=== PATIENT | male | born 1950 | race Caucasian/White ===

== ENCOUNTER 2019-06-13 14:15 | Emergency (ER) | payer BC, MEDICARE ==
--- OUTSIDE RECORDS SUMMARY | 2019-06-13 14:27 | XMS REPORT | Continuity of Care Document ---
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 Problems Provider Date Allergic rhinitis due to pollen Good De Dios MD Onset: 09/22/2016 Allergic rhinitis Good De Dios MD Onset: 09/22/2016 Uncomplicated moderate persistent asthma Good De Dios MD Onset: Social History Type Date Description Comments Sex Unknown Tobacco Use Start: Unknown End: Patient is a former smoker Smoking Status Reviewed: 04/24/19 Patient is a former smoker Allergies, Adverse Reactions, Alerts Description No Known Drug Allergies Medications Active Medications SIG Qnty Indications Ordering Provider Date Levocetirizine Take 1 Tablet 90tabs J30.1 Good Sanchez 05/30/2018 Dihydrochloride By Mouth Once MD [facility] 5mg Daily AT Tablets Bedtime Qnasl Use 2 [place](S) 11units Good Sanchez 09/22/2016 80mcg/Act Aerosol In Each MD [facility] Nostril Once Daily Simvastatin Unknown 40mg Tablets Tamsulosin HCL Unknown 0.4mg Capsules Esomeprazole Magnesium Unknown Ibuprofen Unknown Fiber Unknown Immunizations Description No Information Available Vital Signs Date Vital Result Comment 04/24/2019 10:26am BP Systolic 142 mmHg BP Diastolic 94 mmHg Height 70 inches 5'10" Weight 206.00 lb BMI (Body Mass Index) 29.6 kg/m2 Heart Rate 73 /min Respiratory Rate 16 /min Body Temperature 97.6 F O2 % BldC Oximetry 93 % 05/19/2018 10:00am BP Systolic 124 mmHg BP Diastolic 60 mmHg Height 70 inches 5'10" Weight 205.00 lb BMI (Body Mass Index) 29.4 kg/m2 Heart Rate 61 /min Respiratory Rate 20 /min O2 % BldC Oximetry 95 % Results Test Acquired Date Facility Test Result H/L Range Note Order 04/24/2019 [facility] PFT Supplies <pending> PFT With Bronchodilator <pending> Procedures Date Code Description Status 04/24/2019 36102 Bronchodilation Responsiveness Spirometry Pre/Post Completed Bronchodil Adm Medical Devices Description No Information Available Encounters Type Date Location Provider Dx Diagnosis Office Visit 04/24/2019 [place] Good De Dios J30.89 Other allergic 10:30a MD rhinitis J30.1 Allergic rhinitis due to pollen J45.40 Moderate persistent asthma, uncomplicated Assessments Date Code Description Provider 04/24/2019 J30.89 Other allergic rhinitis Good De Dios MD 04/24/2019 J30.1 Allergic rhinitis due to pollen Good De Dios MD 04/24/2019 J45.40 Moderate persistent asthma, uncomplicated Good De Dios MD Plan of Treatment Future Appointment(s):10/25/2019 8:30 am - [facility]/21/2020 - Good De Dios MDJ30.89 Other allergic [id number] Allergic rhinitis due to [id number] Moderate persistent asthma, uncomplicated Functional Status Description No Information Available Mental Status Description No Information Available Referrals Description No Information Available
[2019-06-13 15:40] LABS: ABS Basophils 0.1 10^3/ul (0-0.2); ABS Eosinophils 0.1 10^3/ul (0-0.6); ABS Lymphocytes 1.9 10^3/ul (1.0-4.8); ABS Neutrophils 7.8 10^3/ul (1.5-7.7); Eosinophil % 1.4 %; Hematocrit 42 % (42-52); Hemoglobin 14.7 g/dL (14.0-18.0); Lymphocyte % 17.1 %; Mean Corpuscular HGB Conc 35 g/dL (31-36); Mean Corpuscular Hemoglobin 32 pg (27-31); Mean Corpuscular Volume 92 fL (80-94); Mean Platelet Volume 9.1 fL (7.4-10.4); Platelet Count 191 10^3/uL (150-450); Red Cell Distribution Width 14 % (10-15); White Blood Count 10.9 10^3/uL (3.5-10.8)
[2019-06-13 16:46] LABS: Albumin 4.4 g/dL (3.2-5.2); Calcium 9.7 mg/dL (8.6-10.3); Potassium 4.1 mmol/L (3.5-5.0); Total Bilirubin 0.6 mg/dL (0.2-1.0)
[2019-06-13 16:52] LABS: Albumin/Globulin Ratio 1.8 (1-3); BUN/Creatinine Ratio 17.2 (8-20); C Reactive Protein 54.43 mg/L (<8.01); EGFR African American 67.8 (>60); EGFR Non-African American 56.1 (>60); Globulin 2.5 g/dL (2-4); Total Protein 6.9 g/dL (6.4-8.9)
[2019-06-13] MEDS ORDERED: NS 0.9% 1000 ML** 1,000 ML IV ONE (18:54)
--- NOTE | 2019-06-13 18:54 | ED ---
Abdominal Pain/Male - HPI Summary HPI Summary: Patient complains of bilateral lower abdominal pain 3 days. Pain described as intermittent, worse 10/11, currently 2/10. No history of similar symptoms with prior episode of diverticulitis. Also states no BM for 3 days, however took a laxative last night and has had 3 BMs today. Denies fever, cough, sore throat, CP, SOB, N/V/D, change in urine, penile or testicular symptoms. Medical history is BPH. Abdominal surgical history is appendectomy, hernia 2. - History of Current Complaint Chief Complaint: EDAbdPain Stated Complaint: ABD CRAMPS PER PT Time Seen by Provider: 06/13/19 18:52 Hx Obtained From: Patient Onset/Duration: Gradual Onset, Lasting Days Timing: Intermittent, Lasting Hours Severity Initially: Moderate Severity Currently: Mild Pain Intensity: 2 Pain Scale Used: 0-10 Numeric Location: Discrete At: RLQ, Discrete At: LLQ, Suprapubic Radiates: No Character: Dull, Cramping Aggravating Factor(s): Nothing Alleviating Factor(s): Spontaneous Resolution Associated Signs And Symptoms: Positive: Negative - Allergies/Home Medications Allergies/Adverse Reactions: Allergies Allergy/AdvReac Type Severity Reaction Status Date / Time No Known Allergies Allergy Verified 01/27/18 16:29 Home Medications: Home Medications Esomeprazole(NF) [Nexium(NF)] 40 mg PO QPM 09/25/12 [History Confirmed 06/13/19] Simvastatin TAB(NF) [Zocor 20 MG (NF)] 40 mg PO QPM 09/25/12 [History Confirmed 06/13/19] Tamsulosin CAP* [Flomax CAP*] 0.4 mg PO QPM 09/25/12 [History Confirmed 06/13/19 ] Fluticasone NASAL SPRAY 50MCG* [Flonase NASAL SPRAY 50MCG*] 2 spray BOTH NARES DAILY 01/27/18 [History Confirmed 06/13/19] LevoCETirizine TAB (NF) [Xyzal TAB (NF)] 5 mg PO DAILY 01/27/18 [History Confirmed 06/13/19] Polymyx/Trimethoprim OPTH* [Polytrim OPHTH*] 2 drop LEFT EYE Q6HR #1 btl [Rx Confirmed 06/13/19] Amoxicillin/Clavulanate TAB* [Augmentin TAB 875*] 875 mg PO BID 14 Days #28 tab 06/13/19 [Rx] PMH/Surg Hx/FS Hx/Imm Hx Endocrine/Hematology History: Reports: Hx 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 Cardiovascular History: Denies: Hx Pacemaker/ICD Respiratory History: Reports: Other Respiratory Problems/Disorders - PNEUMONIA ABOUT 1 1/2 YRS AGO GI History: Reports: Hx Gastroesophageal Reflux Disease - ON MEDS, Other GI Disorders - HX DIVERTICULITIS History: Reports: Other Problems/Disorders - BPH Musculoskeletal History: Reports: Hx Arthritis, Other Musculoskeletal History - DDD Sensory History: Reports: Hx Contacts or Glasses - READING Denies: Hx Hearing Aid Opthamlomology History: Reports: Hx Contacts or Glasses - READING Psychiatric History: Denies: Hx Panic Disorder - Surgical History Surgery Procedure, Year, and Place: LT KNEE SURGERY AGE 18 , DOUBLE HERNIA REPAIR AGE 7, APPENDIX,LYMPH NODES REMOVED FROM NECK FROM CAT SCRATCH FEVER, left hand surgery, Hx Anesthesia Reactions: No Infectious Disease History: No Infectious Disease History: Denies: Traveled Outside the [place] in Last 30 Days - Family History Known Family History: Positive: Other - no cardiac hx Negative: Renal Disease, Blood Disorder - Social History Alcohol Use: None Alcohol Amount: quit drinking in 1981 Substance Use Type: Reports: None 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 Smoking Status (MU): Former Smoker Type: Cigarettes Length of Time of Smoking/Using Tobacco: 20 Have You Smoked in the Last Year: Yes Review of Systems Constitutional: Negative Eyes: Negative ENT: Negative Cardiovascular: Negative Respiratory: Negative Positive: Abdominal Pain Genitourinary: Negative Musculoskeletal: Negative Skin: Negative Neurological/Mental Status: Negative Psychological: Normal All Other Systems Reviewed And Are Negative: Yes Physical Exam Triage Information Reviewed: Yes Vital Signs On Initial Exam: Initial Vitals Temp Pulse Resp BP Pulse Ox 98.3 F 93 18 142/89 95 06/13/19 14:16 06/13/19 14:16 06/13/19 14:16 06/13/19 14:16 06/13/19 14:16 Vital Signs Reviewed: Yes Appearance: Positive: Well-Appearing Skin: Positive: Warm Head/Face: Positive: Normal Head/Face Inspection Eyes: Positive: Normal Neck: Positive: Supple Respiratory/Lung Sounds: Positive: Clear to Auscultation Cardiovascular: Positive: Normal Abdomen Description: Positive: Other: - Tenderness to palpation in bilateral lower quadrants. Abdominal exam otherwise unremarkable. Musculoskeletal: Positive: Normal Neurological: Positive: Normal Psychiatric: Positive: Normal AVPU Assessment: Alert - [place] Coma Scale Best Eye Response: 4 - Spontaneous Best Motor Response: 6 - Obeys Commands Best Verbal Response: 5 - Oriented Coma Scale Total: 15 Procedures - Sedation Patient Received Moderate/Deep Sedation with Procedure: No Diagnostics - Vital Signs Vital Signs Temp Pulse Resp BP Pulse Ox 06/13/19 18:43 65 168/86 93 06/13/19 18:33 98.6 F 68 18 123/78 93 06/13/19 16:30 98.6 F 67 18 141/72 95 06/13/19 14:16 98.3 F 93 18 142/89 95 - Laboratory Lab Results: Lab Results 06/13/19 06/13/19 Range/Units 15:31 15:31 WBC 10.9 H (3.5-10.8) 10^3/uL RBC 4.60 (4.18-5.48) 10^6 /uL Hgb 14.7 (14.0-18.0) g/dL Hct 42 (42-52) % MCV 92 (80-94) fL MCH 32 H (27-31) pg MCHC 35 (31-36) g/dL RDW 14 (10-15) % Plt Count 191 (150-450) 10^3/uL MPV 9.1 (7.4-10.4) fL Neut % (Auto) 71.9 % Lymph % (Auto) 17.1 % [place] % (Auto) 8.9 % Eos % (Auto) 1.4 % Baso % (Auto) 0.7 % Absolute Neuts (auto) 7.8 H (1.5-7.7) 10^3/ul Absolute Lymphs (auto) 1.9 (1.0-4.8) 10^3/ul Absolute Monos (auto) 1.0 H (0-0.8) 10^3/ul Absolute Eos (auto) 0.1 (0-0.6) 10^3/ul Absolute Basos (auto) 0.1 (0-0.2) 10^3/ul Absolute Nucleated RBC 0.0 10^3/ul Nucleated RBC % 0.0 Sodium 138 (135-145) mmol/L Potassium 4.1 (3.5-5.0) mmol/L Chloride 105 (101-111) mmol/L Carbon Dioxide 22 (22-32) mmol/L Anion Gap 11 (2-11) mmol/L BUN 22 (6-24) mg/dL Creatinine 1.28 H (0.67-1.17) mg/dL Est GFR ( Amer) 67.8 (>60) Est GFR (Non-Af Amer) 56.1 (>60) BUN/Creatinine Ratio 17.2 (8-20) Glucose 129 H (70-100) mg/dL Calcium 9.7 (8.6-10.3) mg/dL Total Bilirubin 0.60 (0.2-1.0) mg/dL AST 22 (13-39) U/L ALT 16 (7-52) U/L Alkaline Phosphatase 49 (34-104) U/L C-Reactive Protein 54.43 H (<8.01) mg/L Total Protein 6.9 (6.4-8.9) g/dL Albumin 4.4 (3.2-5.2) g/dL Globulin 2.5 (2-4) g/dL Albumin/Globulin Ratio 1.8 (1-3) Lipase 25 (11.0-82.0) U/L Result Diagrams: 06/13/19 15:31 06/13/19 15:31 Lab Statement: Any lab studies that have been ordered have been reviewed, and results considered in the medical decision making process. Abdominal Pain Male Course/Dx - Course Course Of Treatment: Patient complains of bilateral lower abdominal pain 3 days. Pain described as intermittent, worse 7/10, currently 2/10. No history of similar symptoms with prior episode of diverticulitis. Also states no BM for 3 days, however took a laxative last night and has had 3 BMs today. Denies fever, cough, sore throat, CP, SOB, N/V/D, change in urine, penile or testicular symptoms. Medical history is BPH. Abdominal surgical history is appendectomy, hernia 2. Vital signs within normal limits. WBC 10.9. CRP 54. Creatinine 1.28 mildly elevated from baseline. 1 L normal saline provided. CT abdomen and pelvis positive for diverticulitis without perforation or abscess. Rx for Augmentin. - Diagnoses Provider Diagnoses: Diverticulitis Discharge ED - Sign-Out/Discharge Documenting (check all that apply): Patient Departure - Discharge Plan Condition: Stable Disposition: HOME Prescriptions: Amoxicillin/Clavulanate TAB* [Augmentin TAB 875*] 875 mg PO BID 14 Days #28 tab Patient Education Materials: Diverticulitis (ED), Diverticulitis Diet (ED) Referrals: Andrew Tamez MD [Primary Care Provider] - Additional Instructions: Take antibiotics as directed twice a day for 14 days. Diet of soft easily digestible foods only. Return to the ED for any new or worsening symptoms. - Billing Disposition and Condition Condition: STABLE Disposition: Home
[2019-06-13] MEDS ORDERED: Iodixanol* (CONTRAST) 320 MG/ML 100 ML SDV IV ONE (19:39)
[2019-06-13] MEDS ORDERED: Amoxicillin/Clavulanate TAB* 875 MG PO ONE (20:21)
[2019-06-13 21:45] VITALS: BP 150/73
== END 2019-06-13 21:24 | disposition home or self-care (01) ==
LOC: ED 14:15
DX: K57.92 Diverticulitis of intestine, part unspecified, without perforation or abscess without bleeding (principal); R10.30 Lower abdominal pain, unspecified; K21.9 Gastro-esophageal reflux disease without esophagitis; E11.9 Type 2 diabetes mellitus without complications; Z87.891 Personal history of nicotine dependence; Z79.899 Other long term (current) drug therapy
CPT/HCPCS: 36415; 74177; 80053; 83690; 85025; 86140; 96360; 99283; A9270-GY; Q9967

== ENCOUNTER 2020-04-11 07:30 | Observation (INO) ==
[~2020-04-11 07:30] MED LIST: Buffered Lidocaine 1% SYRIN 1 ml INTRADERM ONE; Dexamethasone IV 4 MG/ML VIAL 1 ml VIAL IV SLOW PU ONE; Lactated Ringers 1000 ml BAG 1,000 ML IV SCH
[2020-04-11] MEDS ORDERED: ceFAZolin 2 GM PREMIX 2 GM/50 ML BAG ONE (07:46)
[2020-04-11] MEDS ORDERED: Dexamethasone IV 4 MG/ML VIAL 1 ml VIAL ONE (07:53)
[2020-04-11] MEDS ORDERED: fentaNYL 100 mcg/2 ml 50 MCG/ML VIAL ONE (09:09)
[2020-04-11] MEDS ORDERED: Midazolam 2 mg/2 ml VIAL 1 mg/ml 2 ml VIAL (2 mg) ONE ×3 (09:09→11:42)
[2020-04-11] MEDS ORDERED: ROPIVACAINE 5 MG/ML 30 ML BTL (0.5%) ONE ×2 (09:18→09:25)
[2020-04-11] MEDS ORDERED: Lidocaine 1% MPF 5 ML VIAL ONE (09:18)
[2020-04-11] MEDS ORDERED: Bupivacaine 0.5% SDV PF 30ML VIAL ONE (09:43)
[2020-04-11] MEDS ORDERED: Propofol 10 MG/ML 20 ML BTL ONE ×2 (09:56→11:39)
[2020-04-11] MEDS ORDERED: fentaNYL 100 mcg/2 ml 50 MCG/ML VIAL IV PRN (10:16)
[2020-04-11] MEDS ORDERED: Naloxone 0.4 mg VIAL 0.4 mg/ml 1 ml VIAL IV PRN (10:16)
[2020-04-11] MEDS ORDERED: HYDROmorphone 1 MG/1 ML SYRINGE IV PRN (10:16)
[2020-04-11] MEDS ORDERED: Ondansetron 4 mg VIAL 2 MG/ML 2 ml VIAL IV PRN ×2 (10:16→11:18)
[2020-04-11] MEDS ORDERED: Lactulose 30 ml UDC PO PRN (11:18)
[2020-04-11] MEDS ORDERED: Ondansetron ODT 4 mg TAB 4 MG TAB PO PRN (11:18)
[2020-04-11] MEDS ORDERED: diPHENhydraMINE 25 mg TAB PO PRN (11:18)
[2020-04-11] MEDS ORDERED: diPHENhydraMINE IV 50 MG/ML 1 ml VIAL (BENADRYL) IV PRN (11:18)
[2020-04-11] MEDS ORDERED: Morphine 2 MG/ML SYRINGE IV PRN (11:18)
[2020-04-11] MEDS ORDERED: Magnesium Hydroxide LIQ 30 ML UDC PO PRN (11:18)
[2020-04-11] MEDS ORDERED: Lactated Ringers 1000 ml BAG 1,000 ML IV SCH (12:00)
[2020-04-11] MEDS: ceFAZolin 1 GM ADVAN 1 GM in NS 0.9% 50 ML 50 ML IVPB SCH (18:08)
[2020-04-11] MEDS: Magnesium Hydroxide LIQ 30 ML UDC PO SCH (21:54)
[2020-04-12] MEDS: ceFAZolin 1 GM ADVAN 1 GM in NS 0.9% 50 ML 50 ML IVPB SCH ×2 (02:08→09:32)
[2020-04-12 05:55] LABS: Hematocrit 36 % (42-52); Hemoglobin 12.4 g/dL (14.0-18.0); Mean Platelet Volume 8.7 fL (7.4-10.4); Platelet Count 209 10^3/uL (150-450)
[2020-04-12 06:15] LABS: BUN/Creatinine Ratio 19.3 (8-20); EGFR African American 104.2 (>60); EGFR Non-African American 86.1 (>60); Potassium 4.1 mmol/L (3.5-5.0)
[2020-04-12] MEDS: Magnesium Hydroxide LIQ 30 ML UDC PO SCH (07:36)
[2020-04-12] MEDS ORDERED: Vitamin THERAPEUTIC TAB PO SCH (09:00)
[2020-04-12 10:54] VITALS: BP 146/72
== END 2020-04-12 13:25 | disposition home or self-care (01) ==
LOC: INTOOBSV 07:30 → AA 07:30 → SSU 13:26
PROVIDERS: ADMIT Orthopaedic Surgery Adult Reconstructive Orthopaedic Surgery; ATTEND Orthopaedic Surgery Adult Reconstructive Orthopaedic Surgery